=== PATIENT | male | born 1955 | race Caucasian/White ===

== ENCOUNTER 2022-08-15 11:49 | Inpatient (IN) | payer MEDICARE, OTHER ==
[~2022-08-15] VITALS: Ht 175.3 cm; Wt 53.0 kg
[2022-08-15] MEDS ORDERED: CLONIDINE HCL0.3 MG PO (13:10)
[2022-08-15] MEDS ORDERED: TRAZODONE HCL100 MG PO (13:11)
[2022-08-15] MEDS ORDERED: VITAMIN C1000 MG PO (13:12)
[2022-08-15] MEDS ORDERED: ALBUTEROL2.5 MG/3 M INH (13:13)
[2022-08-15] MEDS ORDERED: LOVENOX40 MG/0.4 SUB-Q (13:14)
[2022-08-15] MEDS ORDERED: IPRAT-ALBUT 0.5-3 ML INH (13:15)
[2022-08-15] MEDS ORDERED: MELATONIN3 MG PO (13:16)
[2022-08-15] MEDS ORDERED: LOPERAMIDE2 M1 PO (13:16)
[2022-08-15] MEDS ORDERED: NICOTINE LOZENGE2 M2 BUCCAL (13:17)
[2022-08-15] MEDS ORDERED: ONDANSETRON ODT8 MG PO (13:18)
[2022-08-15] MEDS ORDERED: OXYCODONE HCL5 MG PO ×2 (13:18→13:19)
[2022-08-15] MEDS ORDERED: SEROQUEL25 MG PO (13:20)
[2022-08-15] MEDS ORDERED: GAS RELIEF80 MG PO (13:21)
[2022-08-15 17:47] VITALS: BP 97/68
[2022-08-15 21:12] VITALS: BP 102/51
[2022-08-16 02:00] VITALS: BP 100/56
[2022-08-16 06:30] VITALS: BP 121/55
[2022-08-16 09:54] VITALS: BP 128/59
[2022-08-16 17:21] VITALS: BP 123/48
[2022-08-16 19:51] VITALS: BP 131/54
--- NOTE | 2022-08-17 04:12 | OR ---
[facility] [address] [place], [place] [address] Signed DATE OF OPERATION: 08/16/2022 SURGEON: Mandi Patel MD PREOPERATIVE DIAGNOSIS: Multiple medical problems and blood per ileostomy. POSTOPERATIVE DIAGNOSIS: Periampullary bleeding, active and persistent. PROCEDURES: 1. Esophagogastroduodenoscopy. 2. Control of hemorrhage in periampullary area with minimal direct cautery, application of hemoclip and Cook hemostatics spray. ANESTHESIA: Intravenous sedation, propofol infusion, Bryan Gamez, MEDIA PRODUCTION SUPPORT MANAGER. INDICATION: A 67-year-old man is in the hospital upon admission by Dr. Pelaez, having multiple medical problems, including an ileostomy related to right colectomy performed elsewhere. He was admitted with blood per ostomy from [facility] care facility locally. He has been fluid resuscitated and is now to undergo upper endoscopy to better characterize the problem. He has been identified as having a duodenal ulcer in recent times and in the distant past as well. He has had no hematemesis. He does not currently have blood per the ileostomy. He understands, as does his the risk of bleeding, infection, perforation, and other unforeseen complications attendant to upper endoscopy with attempt at control of bleeding as necessary. Understanding this, he wished to proceed. FINDINGS: The esophagus and stomach have no blood in them. The duodenum certainly did have some fresh blood and bleeding. Close inspection showed what ultimately appeared to be the ampulla with a focal area of bleeding. Careful inspection did not confirm the bleeding to have been from the biliary tree, but rather adjacent to the ampulla proper. Excision of the ampulla by cautery would be contraindicated without consideration for stenting of the duct and on that basis, spot weld technique with electrocautery to the bleeding site as well as an application of a hemoclip near it, but not over it as well as application of Cook hemospray was undertaken in hopes of controlling the persistent, though not vigorous bleeding. Electronically Signed By: MANDI PATEL MD 08/17/22 0412 PATIENT NAME: Miguel ESCOBEDO OPERATIVE REPORT DATE OF : 51 REPORT #: [id number] PHYSICIAN: MANDI PATEL MD PCP: OTHER PCP REPORT IS CONFIDENTIAL AND NOT TO BE RELEASED WITHOUT AUTHORIZATION [facility] [address] [place], [place] [address] Signed DESCRIPTION OF PROCEDURE: The patient was brought to the endoscopy suite and placed in lateral decubitus position, and given topical lidocaine hypopharyngeal anesthesia. A bite block was placed. An Olympus video upper endoscope was passed in the hypopharynx and into the esophagus without problem. The esophagus was normal. Stomach was intubated, which was normal as well. Passage of the scope through the pylorus showed some fresh blood immediately. The scope was passed beyond this to the 3rd portion of the duodenum, which was entirely normal. Photographs were taken. The scope was then withdrawn and a small nodular area with persistent oozing of blood was noted. At 1st, this looked to be like a duodenal polyp, but given its location and with careful affirmation, it was clear that this mass represents the ampulla, as the ampulla proper was not otherwise visualized. There was persistent oozing from this area of fresh blood. Careful inspection did not show it to be from a luminal source, specifically not bleeding from the common bile duct (hemobilia), but rather an area of inflammation on the ampulla in the inferior aspect. One might be tempted to perform snare polypectomy of the ampulla in hopes of controlling the bleeding, that could likely result in ampullary stenosis and other significant issues and other methods of control were deemed advisable. Without access to a side-viewing J scope, a snare polypectomy device was passed and with a minimal amount of wire extruding from the device spot welding of the inferior aspect of the ampulla undertaken. This did afford some control to the bleeding, but not complete control. Irrigation and careful inspection again showed bleeding. Fluid distinct and on the surface of the ampulla in the inferior aspect a bit. With various manipulations, the area behind it could be identified more fully. Hemoclip was applied to this area with some benefit. Although hemostasis was improved, it was not complete and on that basis Cook hemospray was carefully applied to the area, which did appear to allow for hemostatic control. The scope was then manipulated, allowed for irrigation, showing no other source of bleeding. The scope was carefully withdrawn and removed and the patient taken to the recovery room in good condition. CONCLUDING DIAGNOSIS: Periampullary bleeding, controlled. PLAN: PPI use and Carafate slurry will be essential to healing of this area. We will monitor closely that there is no after affect, specifically no pancreatitis or other untoward sequela. Mandi Patel MD Electronically Signed By: MANDI PATEL MD 08/17/22 0412 PATIENT NAME: GREGGMiguel Piña OPERATIVE REPORT DATE OF : 51 REPORT #: [id number] PHYSICIAN: MANDI PATEL MD PCP: OTHER PCP REPORT IS CONFIDENTIAL AND NOT TO BE RELEASED WITHOUT AUTHORIZATION [facility] [address] [place], [place] [address] Signed /[facility] /[id number] cc: Dr. Phan Pelaez Copies: ~ Electronically Signed By: MANDI PATEL MD 08/17/22 0412 PATIENT NAME: Miguel ESCOBEDO OPERATIVE REPORT DATE OF : 51 REPORT #: [id number] PHYSICIAN: MANDI PATEL MD PCP: OTHER PCP REPORT IS CONFIDENTIAL AND NOT TO BE RELEASED WITHOUT AUTHORIZATION
--- NOTE | 2022-08-17 04:12 | CONS ---
[facility] [address] [place], [place] [address] Signed DATE OF CONSULTATION: PROBLEM: Melena via ileostomy. HISTORY OF PRESENT ILLNESS: This 67-year-old white man had recent longstanding hospitalization extending from about July 09 to August 11 and presents to the emergency room with melena from his ileostomy. He had some abdominal pain in the lower abdomen as well. His complicated issue was that of initially appendicitis in [place], [place], treated with laparoscopy, conversion to open appendectomy. Subsequent complications prompted transfer to [facility] where he ultimately had a right colectomy with end ileostomy. He was from [place], [place], but sent to [facility] on August 11, 2022 (today is August 15). He was noted to have melena within the ileostomy appliance and on that basis was taken by ambulance to [facility] where he was evaluated. The patient has had no hematemesis or blood per rectum. He has underlying problems of hypertension, COPD, cardiomyopathy, sleep apnea, anxiety and depression. He does have a cardiac pacemaker in place and currently an ileostomy. ALLERGIES: He has allergies to nonsteroidal medication and contrast iodine. HOME MEDICATIONS: Included clonidine, trazodone, vitamin C, albuterol, Lovenox subcutaneously, DuoNeb, loperamide, melatonin, nicotine, buccal lozenge, oxycodone, Seroquel, and simethicone. The patient describes a distant history of duodenal ulcer. I was initially under the understanding that he had a recent duodenal ulcer, but this apparently is not true and was from long ago he says. SOCIAL HISTORY: The patient is accompanied by his two sisters. He lives in [place]. One sister lives in [place] and the other in the [facility]. The patient is not . REVIEW OF SYSTEMS: He denies any shortness of breath or chest pain. He feels generally weak. He has no dysphagia. He has had no hematemesis, only apparent melena per ileostomy site. PHYSICAL EXAMINATION: GENERAL: Gaunt and cachectic white man who looks with advanced illness. He is said to Electronically Signed By: MANDI PATEL MD 08/17/22 0412 PATIENT NAME: Miguel ESCOBEDO Wang CONSULTATION DATE OF : 51 REPORT #: [id number] PHYSICIAN: MANDI PATEL MD PCP: OTHER PCP REPORT IS CONFIDENTIAL AND NOT TO BE RELEASED WITHOUT AUTHORIZATION [facility] [address] [place], [place] [address] Signed have lost an additional 20 pounds in the past month and notably was quite thin before that. VITAL SIGNS: Show a temperature of 97.3, a pulse of 70, blood pressure 97/68. NECK: Trachea is easily identified and normal without sign of cervical adenopathy. He has an obvious left pectoral pacemaker in place. He has a body fat over his chest wall. HEART: Regular at this time. CHEST: Clear. ABDOMEN: Sunken and thin. His xiphoid is easily identified. Abdominal palpation reveals no evidence of ascites or tenderness and no mass. EXTREMITIES: Show no clubbing, cyanosis, or edema. ASSESSMENT: The patient has had significant complications related initially to appendicitis and now has an end ileostomy that has shown blood in it. He is known to have history of duodenal ulcer in the past, though unclear when he last had upper endoscopy to him and to his sisters. If he has indeed undergone right colectomy with end ileostomy, we can at least be confident that his bleeding is an upper source. On that basis, I would recommend upper endoscopy to be performed tomorrow to better characterize the problem that assess for recurrent peptic disease. The risk of bleeding, infection, perforation, need for other indicated procedure were reviewed in detail. He understands and wished to proceed. MD NANI Palmer/[facility] /[id number] cc: MD Dr. Mandi VALLES Copies: ~ Electronically Signed By: MANDI PATEL MD 08/17/22 0412 PATIENT NAME: Miguel ESCOBEDO CONSULTATION DATE OF : 51 REPORT #: [id number] PHYSICIAN: MANDI PATEL MD PCP: OTHER PCP REPORT IS CONFIDENTIAL AND NOT TO BE RELEASED WITHOUT AUTHORIZATION
[2022-08-17 05:19] VITALS: BP 115/54
[2022-08-17 09:23] VITALS: BP 128/59
[2022-08-17 14:15] VITALS: BP 126/48
[2022-08-17 17:52] VITALS: BP 114/46
[2022-08-17 20:17] VITALS: BP 115/51
[2022-08-18 05:24] VITALS: BP 119/57
[2022-08-18 09:18] VITALS: BP 112/54
[2022-08-18 14:01] VITALS: BP 120/46
[2022-08-18 17:32] VITALS: BP 107/53
[2022-08-18 20:16] VITALS: BP 112/57
[2022-08-19] VITALS (8 sets, daily range): BP systolic 127–144; BP diastolic 48–859
[2022-08-19] MEDS ORDERED: OXYCODONE HCL5 MG PO (16:31)
[2022-08-19] MEDS ORDERED: SUCRALFATE1 GM PO (16:32)
[2022-08-19] MEDS ORDERED: TRAZODONE HCL100 MG PO (16:32)
[2022-08-19] MEDS ORDERED: PANTOPRAZOLE SO40 MG PO (16:32)
[2022-08-20 01:34] VITALS: BP 138/57
[2022-08-20 05:24] VITALS: BP 106/76
[2022-08-20 09:29] VITALS: BP 122/43
[2022-08-20 13:26] VITALS: BP 128/43
--- NOTE | 2022-08-20 19:01 | OR ---
[facility] [address] [place], [place] [address] Signed DATE OF OPERATION: 08/19/2022 SURGEON: Mandi Patel MD PREOPERATIVE DIAGNOSES: Questionable persistent recurrent melena in ileostomy bag. POSTOPERATIVE DIAGNOSIS: No evidence of upper gastrointestinal bleeding. PROCEDURE: Esophagogastroduodenoscopy. ANESTHESIA: Intravenous sedation, propofol infusion, Bryan Gamez CRNA INDICATIONS: This 67-year-old white man was admitted with melena through an ostomy site. He has a complex past history previously enumerated in previous upper endoscopy report from two days ago. He appeared on previous endoscopy to have bleeding at the site of the ampulla, thought related to it, but not from it particularly. He had no further bleeding after interventions were undertaken including minimal amount of cautery, hemostatic agent and a small clip. He is noted to have dark ileostomy effluent though not elyssa blood by any means and his hematocrit has drifted requiring another unit of blood transfusion. I have recommended repeat upper endoscopy to see if there is blood associated with ampullary drainage; if this is the case, he may be suffering the rare but well known problem of (bleeding from the pancreatic duct) for which advanced endoscopic treatment would be required. He understands the risk of bleeding, infection, and perforation related to upper endoscopy and wished to proceed. FINDINGS: There was no sign of active bleeding in the esophagus, stomach, or duodenum. The area of previous intervention had a bit of scar tissue. The ampullary appearance was completely gone at this point. It is unclear the significance of that. The true ampulla was not particularly identified it is admitted, but again no blood fresh or otherwise was noted. DESCRIPTION OF PROCEDURE: The patient was brought to the endoscopy suite and placed in the lateral decubitus Electronically Signed By: MANDI PATEL MD 08/20/22 1901 PATIENT NAME: Miguel ESCOBEDO OPERATIVE REPORT DATE OF : 51 REPORT #: [id number] PHYSICIAN: MANDI PATEL MD PCP: OTHER PCP REPORT IS CONFIDENTIAL AND NOT TO BE RELEASED WITHOUT AUTHORIZATION [facility] [address] [place], [place] [address] Signed position, given topical lidocaine hypopharyngeal anesthesia. Intravenous sedation was induced with propofol infusional technique with full cardiopulmonary monitoring. A bite block was placed. An Olympus video upper endoscope was passed in the hypopharynx. Careful inspection of the vallecula and surrounding hypopharyngeal area did show some small blood vessels, but no actual varices. Scope was advanced to the esophagus, throughout its length it was normal. Scope was passed to the stomach, which was insufflated with air. Rugal folds were normal. There was no blood or clot, fresh or old blood. There was mild inflammation the peripyloric area. The scope was passed into the duodenum. The bulbar portion was normal and examination of 2nd and 3rd portion showed no sign of blood or clot. Withdrawal of scope showed in the 2nd portion areas of scarring from previous intervention. The bulb was findings suggestive of ampulla was no longer present, only a bit of scar. There was no sign of fresh blood, stigmata of bleeding, or other issue. The scope then was carefully withdrawn and remaining evaluation was normal. The patient was taken to the recovery room in good condition. CONCLUDING DIAGNOSIS: No evidence of active bleeding. No sign of ampullary bleeding or even clear finding of the ampulla itself. MD NANI Palmer/[facility] /[id number] cc: Naren Garibay MD Copies: NAREN GARIBAY MD ~ Electronically Signed By: MANDI PATEL MD 08/20/22 1901 PATIENT NAME: Miguel ESCOBEDO OPERATIVE REPORT DATE OF : 51 REPORT #: [id number] PHYSICIAN: MANDI PATEL MD PCP: OTHER PCP REPORT IS CONFIDENTIAL AND NOT TO BE RELEASED WITHOUT AUTHORIZATION
== END 2022-08-20 14:40 | DRG 378 ==
LOC: ED 11:49 → MS 11:50
PROVIDERS: Surgery; ADMIT Family Medicine; ATTEND Internal Medicine
PROC: 0W3P8ZZ Control Bleeding in Gastrointestinal Tract, Via Natural or Artificial Opening Endoscopic (ICD-10-PCS; 2022-08-16)
PROC: 0T9B70Z Drainage of Bladder with Drainage Device, Via Natural or Artificial Opening (ICD-10-PCS; 2022-08-16)
PROC: 30233N1 Transfusion of Nonautologous Red Blood Cells into Peripheral Vein, Percutaneous Approach (ICD-10-PCS; principal; 2022-08-16 15:30)
PROC: 0DJ08ZZ Inspection of Upper Intestinal Tract, Via Natural or Artificial Opening Endoscopic (ICD-10-PCS; 2022-08-19)
DX: K92.2 Gastrointestinal hemorrhage, unspecified (principal); D62 Acute posthemorrhagic anemia; E87.1 Hypo-osmolality and hyponatremia; N17.9 Acute kidney failure, unspecified; N39.0 Urinary tract infection, site not specified; I10 Essential (primary) hypertension; J44.9 Chronic obstructive pulmonary disease, unspecified; G47.30 Sleep apnea, unspecified; K21.9 Gastro-esophageal reflux disease without esophagitis; E83.42 Hypomagnesemia; B96.5 Pseudomonas (aeruginosa) (mallei) (pseudomallei) as the cause of diseases classified elsewhere; F10.90 Alcohol use, unspecified, uncomplicated; E87.6 Hypokalemia; F41.9 Anxiety disorder, unspecified; F32.A Depression, unspecified; F17.210 Nicotine dependence, cigarettes, uncomplicated; Z88.6 Allergy status to analgesic agent; Z91.041 Radiographic dye allergy status; Z79.891 Long term (current) use of opiate analgesic; Z90.49 Acquired absence of other specified parts of digestive tract; Z93.2 Ileostomy status; Z95.0 Presence of cardiac pacemaker; Z79.899 Other long term (current) drug therapy
CPT/HCPCS: 00731; 36415; 36430; 51702; 71045; 80053; 81001; 82150; 83735; 84100; 85025; 85610; 85730; 86850; 86900; 86901; 86922; 87077; 87088; 87186; 94640; 94760; 96374; 96375; 96376; 97162; 97166; 97530; 99285-25; A9270; C9113; G0378; J0696; J1610; J2405; J2704; J3475; J3480; J3490; J7030; J7060; J7121; J7512; P9016

== ENCOUNTER 2022-09-11 17:12 | Inpatient (IN) | payer MEDICARE, OTHER ==
[~2022-09-11] VITALS: Ht 175.3 cm; Wt 43.5 kg
--- OUTSIDE RECORDS SUMMARY | ~2022-09-11 | XMS | Continuity of Care Document ---
Demographics + + + | Address | [address] | | | [place] [address] | + + + | Preferred Language | Unknown | + + + | Marital Status | | + + + | Baptism Affiliation | Unknown | + + + | Race | White | + + + | Ethnic Group | Not or | + + + Author + + + | Author | [facility] | + + + | Organization | [facility] | + + + | Address | [address] | | | [place] [address] | + + + | Phone | | + + + Care Team Providers + + + + | Care Wood Miller Name | Role | Phone | + + + + Unavailable | Unavailable | + + + + Unavailable | Unavailable | + + + + Unavailable | Unavailable | + + + + Allergies and Intolerances + + + + + | date | description | facility | type | + + + + + | (no date) | Celecoxib | [facility] (unknown[facility] | | + + + + + | (no date) | Celecoxib | [facility] | (unknown) | | | | [facility] | | + + + + + | (no date) | CONTRAST IODINE | [facility] | (unknown) | + + + + + | (no date) | NSAIDS | [facility] | (unknown) | | | (Non-Steroidal | | | | | Anti-Inflamma | | | + + + + + | (no date) | celecoxib | [facility] | (unknown) | + + + + + | (no date) | Celecoxib | [facility] | (unknown) | | | | Hospital | | + + + + + Encounters No information. Functional Status No information. Immunizations No information. Medications + + + + | date | description | facility | + + + + | 2022-08-19 00:00 | OXYCODONE HCL | [facility] | + + + + | 2022-08-20 00:00 | OXYCODONE HCL | [facility] | + + + + | 2022-08-20 00:00 | IPRATROPIUM/ALBUTEROL | [facility] | | | SULFATE | | + + + + | 2022-08-20 00:00 | QUETIAPINE FUMARATE | [facility] | + + + + | 2022-08-20 00:00 | ASCORBIC ACID | [facility] | + + + + | 2022-08-20 00:00 | MELATONIN | [facility] | + + + + | 2022-08-20 00:00 | ONDANSETRON | [facility] | + + + + | 2022-08-19 00:00 | PANTOPRAZOLE SODIUM | [facility] | + + + + | 2022-08-20 00:00 | SIMETHICONE | [facility] | + + + + | 2022-08-19 00:00 | SUCRALFATE | [facility] | + + + + | 2022-08-20 00:00 | Nicotine Polacrilex | [facility] | + + + + | 2022-08-20 00:00 | ALBUTEROL SULFATE | [facility] | + + + + | 2022-08-20 00:00 | Enoxaparin Sodium | [facility] | + + + + | 2022-08-19 00:00 | TRAZODONE HCL | [facility] | + + + + | 2022-08-20 00:00 | TRAZODONE HCL | [facility] | + + + + | 2022-08-20 00:00 | CLONIDINE HCL | [facility] | + + + + | 2022-08-20 00:00 | LOPERAMIDE HCL | [facility] | + + + + Problems + + + + | date | description | facility | + + + + | 2022-08-15 00:00 | Gastrointestinal | [facility] | | | hemorrhage | | + + + + | 2022-08-17 19:18 | PSEUDOMONAS (MALLEI) | [facility] | | | CAUSING DISEASES [facility] | | | | E[facility]WH | | + + + + | 2022-08-17 19:18 | Acute posthemorrhagic | [facility] | | | anemia | | + + + + | 2022-08-17 19:18 | HYPOMAGNESEMIA | [facility] | + + + + | 2022-08-17 19:18 | HYPO-OSMOLALITY AND | [facility] | | | HYPONATREMIA | | + + + + | 2022-08-17 19:18 | HYPOKALEMIA | [facility] | + + + + | 2022-08-17 19:18 | ALCOHOL USE, UNSPECIFIED, | [facility] | | | UNCOMPLICATED | | + + + + | 2022-08-17 19:18 | NICOTINE DEPENDENCE, | [facility] | | | CIGARETTES, UNCOMPLICATED | | + + + + | 2022-08-17 19:18 | DEPRESSION, UNSPECIFIED | [facility] | + + + + | 2022-08-17 19:18 | ANXIETY DISORDER, | [facility] | | | UNSPECIFIED | | + + + + | 2022-08-17 19:18 | SLEEP APNEA, UNSPECIFIED | [facility] | + + + + | 2022-08-17 19:18 | Essential (primary) | [facility] | | | hypertension | | + + + + | 2022-08-17 19:18 | CHRONIC OBSTRUCTIVE | [facility] | | | PULMONARY DISEASE, | | | | UNSPECIFIED | | + + + + | 2022-08-17 19:18 | GASTRO-ESOPHAGEAL REFLUX | [facility] | | | DISEASE WITHOUT ESOPHAGIT | | + + + + | 2022-08-17 19:18 | GASTROINTESTINAL | [facility] | | | HEMORRHAGE, UNSPECIFIED | | + + + + | 2022-08-17 19:18 | ACUTE KIDNEY FAILURE, | [facility] | | | UNSPECIFIED | | + + + + | 2022-08-17 19:18 | URINARY TRACT INFECTION, | [facility] | | | SITE NOT SPECIFIED | | + + + + | 2022-08-17 19:18 | LOWER ABDOMINAL PAIN, | [facility] | | | UNSPECIFIED | | + + + + | 2022-08-17 19:18 | DENTIST (CURRENT) USE OF | [facility] | | | OPIATE ANALGESIC | | + + + + | 2022-08-17 19:18 | OTHER MCC (CURRENT) | [facility] | | | DRUG THERAPY | | + + + + | 2022-08-17 19:18 | ALLERGY STATUS TO | [facility] | | | ANALGESIC AGENT STATUS | | + + + + | 2022-08-17 19:18 | ACQUIRED ABSENCE OF OTHER | [facility] | | | SPECIFIED PARTS OF DIGES | | + + + + | 2022-08-17 19:18 | RADIOGRAPHIC DYE ALLERGY | [facility] | | | STATUS | | + + + + | 2022-08-17 19:18 | ILEOSTOMY STATUS | [facility] | + + + + | 2022-08-17 19:18 | PRESENCE OF CARDIAC | [facility] | | | PACEMAKER | | + + + + Procedures + + + + | date | description | facility | + + + + | 2022-08-16 00:00 | Esophagogastroduodenoscopy | [facility] | | | (EGD) with closed biopsy | | + + + + | 2022-08-19 00:00 | Esophagogastroduodenoscopy | [facility] | | | (EGD) with closed biopsy | | + + + + | 2022-08-16 00:00 | Esophagogastroduodenoscopy | [facility] | | | (EGD) with closed biopsy | | + + + + | 2022-08-19 00:00 | Esophagogastroduodenoscopy | [facility] | | | (EGD) with closed biopsy | | + + + + Results/Labs +--------+--------+ + +---------+--------+ + | test | date | author | facility | value | unit | | | | | | | | | interpreta | | | | | | | | tion | +--------+--------+ + +---------+--------+ + + + | Result panel 1 | + + + + + + +---------+ + + | (unknown) | (no date) | (unknown) | [facility] | [facility]units | (unknown) | | [facility] | [facility] | | | | + + + + +---------+ + + + + | Result panel 2 | + + + + + + +---------+ + + | (unknown) | (no date) | (unknown) | [facility] (no | (units | (unknown) | | | [facility] | value) | unknown) | | [facility] | | | | + + + + +---------+ + + + + | Result panel 3 | + + + + + + +---------+ + + | (unknown) | (no date) | (unknown) | [facility] (no | (units | (unknown) | | | | [facility] | value) | unknown) | | | | [facility] | | | | + + + + +---------+ + + + + | Result panel 4 | + + + + + + +---------+ + + | (unknown) | (no date) | (unknown) | [facility] (no | (units | (unknown) | | | | [facility] | value) | unknown) | | [facility] | | | | + + + + +---------+ + + + + | Result panel 5 | + + + + + + +---------+ + + | (unknown) | (no date) | (unknown) | [facility] (no | (units | (unknown) | | | | [facility] | value) | unknown) | | [facility] | | | | + + + + +---------+ + + + + | Result panel 6 | + + + + + + +---------+ + + | (unknown) | (no date) | (unknown) | [facility] (no | (units | (unknown) | | | | [facility] | value) | unknown) | | | | [facility] | | | | + + + + +---------+ + + + + | Result panel 7 | + + + + + + +---------+ + + | (unknown) | (no date) | (unknown) | [facility] (no | (units | (unknown) | | | | [facility] | value) | unknown) | | | | [facility] | | | | + + + + +---------+ + + + + | Result panel 8 | + + + + + + +---------+ + + | (unknown) | (no date) | (unknown) | [facility] (no | (units | (unknown) | | | | [facility] | value) | unknown) | | | | [facility] | | | | + + + + +---------+ + + + + | Result panel 9 | + + + + + + +---------+ + + | (unknown) | (no date) | (unknown) | [facility] (no | (units | (unknown) | | | | [facility] | value) | unknown) | | | | [facility] | | | | + + + + +---------+ + + + + | Result panel 10 | + + + + + + +---------+ + + | (unknown) | (no date) | (unknown) | [facility] (no | (units | (unknown) | | | | [facility] | value) | unknown) | | | [facility] | | | | + + + + +---------+ + + + + | Result panel 11 | + + + + + + +---------+ + + | (unknown) | (no date) | (unknown) | [facility] | (no | (units | (unknown) | | | | [facility] | value) | unknown) | | | [facility] | | | | + + + + +---------+ + + + + | Result panel 12 | + + + + + + +---------+ + + | (unknown) | (no date) | (unknown) | [facility] | (no | (units | (unknown) | | | | [facility] | value) | unknown) | | | [facility] | | | | + + + + +---------+ + + + + | Result panel 13 | + + + + + + +---------+ + + | (unknown) | (no date) | (unknown) | [facility] | (no | (units | (unknown) | | | | [facility] | value) | unknown) | | | [facility] | | | | + + + + +---------+ + + + + | Result panel 14 | + + + + + + +---------+ + + | (unknown) | (no date) | (unknown) | [facility] | (no | (units | (unknown) | | | | [facility] | value) | unknown) | | | | | [facility] | | | | + + + + +---------+ + + + + | Result panel 15 | + + + + + + +---------+ + + | (unknown) | (no date) | (unknown) | [facility] | (no | (units | (unknown) | | | | [facility] | value) | unknown) | | [facility] | | | | + + + + +---------+ + + + + | Result panel 16 | + + + + + + +---------+ + + | (unknown) | (no date) | (unknown) | [facility] | (no | (units | (unknown) | | | | [facility] | value) | unknown) | | [facility] | | | | + + + + +---------+ + + + + | Result panel 17 | + + + + + + +---------+ + + | (unknown) | (no date) | (unknown) | [facility] | (no | (units | (unknown) | | | | [facility] | value) | unknown) | | [facility] | | | | + + + + +---------+ + + + + | Result panel 18 | + + + + + + +---------+ + + | (unknown) | (no date) | (unknown) | [facility] | (no | (units | (unknown) | | | | [facility] | value) | unknown) | | | [facility] | | | | + + + + +---------+ + + + + | Result panel 19 | + + + + + + +---------+ + + | (unknown) | (no date) | (unknown) | [facility] (no | (units | (unknown) | | | | [facility] | value) | unknown) | | [facility] | | | | + + + + +---------+ + + + + | Result panel 20 | + + + + + + +---------+ + + | (unknown) | (no date) | (unknown) | [facility] (no | (units | (unknown) | | | | [facility] | value) | unknown) | | [facility] | | | | + + + + +---------+ + + + + | Result panel 21 | + + + + + + +---------+ + + | (unknown) | (no date) | (unknown) | [facility] (no | (units | (unknown) | | | | [facility] | value) | unknown) | | [facility] | | | | + + + + +---------+ + + + + | Result panel 22 | + + + + + + +---------+ + + | (unknown) | (no date) | (unknown) | [facility] | (no | (units | (unknown) | | | | [facility] | value) | unknown) | [facility] | | | | + + + + +---------+ + + + + | Result panel 23 | + + + + + + +---------+ + + | (unknown) | (no date) | (unknown) | [facility] | (no | (units | (unknown) | | | | [facility] | value) | unknown) | | | [facility] | | | | + + + + +---------+ + + + + | Result panel 24 | + + + + + + +---------+ + + | (unknown) | (no date) | (unknown) | [facility] | (no | (units | (unknown) | | | | [facility] | value) | unknown) | | [facility] | | | | + + + + +---------+ + + + + | Result panel 25 | + + + + + + +---------+ + + | (unknown) | (no date) | (unknown) | [facility] | (no | (units | (unknown) | | | | [facility] | value) | unknown) | | | [facility] | | | | + + + + +---------+ + + + + | Result panel 26 | + + + + + + +---------+ + + | (unknown) | (no date) | (unknown) | [facility] | (no | (units | (unknown) | | | | [facility] | value) | unknown) | [facility] | | | | + + + + +---------+ + + + + | Result panel 27 | + + + + + + +---------+ + + | (unknown) | (no date) | (unknown) | [facility] | (no | (units | (unknown) | | | | [facility] | value) | unknown) | | | | | [facility] | | | | + + + + +---------+ + + + + | Result panel 28 | + + + + + + +---------+ + + | (unknown) | (no date) | (unknown) | [facility] | (no | (units | (unknown) | | | | [facility] | value) | unknown) | | | | | [facility] | | | | + + + + +---------+ + + + + | Result panel 29 | + + + + + + +---------+ + + | (unknown) | (no date) | (unknown) | [facility] | (no | (units | (unknown) | | | | [facility] | value) | unknown) | | | | | [facility] | | | | + + + + +---------+ + + + + | Result panel 30 | + + + + + + +---------+ + + | (unknown) | (no date) | (unknown) | [facility] | (no | (units | (unknown) | | | | [facility] | value) | unknown) | | | | | [facility] | | | | + + + + +---------+ + + + + | Result panel 31 | + + + + + + +---------+ + + | (unknown) | (no date) | (unknown) | [facility] | (no | (units | (unknown) | | | | [facility] | value) | unknown) | | | | | [facility] | | | | + + + + +---------+ + + + + | Result panel 32 | + + + + + + +---------+ + + | (unknown) | (no date) | (unknown) | [facility] | (no | (units | (unknown) | | | | [facility] | value) | unknown) | | [facility] | | | | + + + + +---------+ + + + + | Result panel 33 | + + + + + + +---------+ + + | (unknown) | (no date) | (unknown) | [facility] | (no | (units | (unknown) | | | | [facility] | value) | unknown) | | | [facility] | | | | + + + + +---------+ + + + + | Result panel 34 | + + + + + + +---------+ + + | (unknown) | (no date) | (unknown) | [facility] | (no | (units | (unknown) | | | | [facility] | value) | unknown) | [facility] | [facility] | | | | + + + + +---------+ + + + + | Result panel 35 | + + + + + + +---------+ + + | (unknown) | (no date) | (unknown) | [facility] | (no | (units | (unknown) | | | | [facility] | value) | unknown) | | | [facility] | | | | + + + + +---------+ + + + + | Result panel 36 | + + + + + + +---------+ + + | (unknown) | (no date) | (unknown) | [facility] | (no | (units | (unknown) | | | | [facility] | value) | unknown) | | | [facility] | | | | + + + + +---------+ + + + + | Result panel 37 | + + + + + + +---------+ + + | (unknown) | (no date) | (unknown) | [facility] | (no | (units | (unknown) | | | | [facility] | value) | unknown) | | | | [facility] | | | | + + + + +---------+ + + + + | Result panel 38 | + + + + + + +---------+ + + | (unknown) | (no date) | (unknown) | [facility] | (no | (units | (unknown) | | | | [facility] | value) | unknown) | | [facility] | | | | + + + + +---------+ + + + + | Result panel 39 | + + + + + + +---------+ + + | (unknown) | (no date) | (unknown) | [facility] (no | (units | (unknown) | | | | [facility] | value) | unknown) | | | [facility] | | | | + + + + +---------+ + + + + | Result panel 40 | + + + + + + +---------+ + + | (unknown) | (no date) | (unknown) | [facility] (no | (units | (unknown) | | | | [facility] | value) | unknown) | | [facility] | | | | + + + + +---------+ + + + + | Result panel 41 | + + + + + + +---------+ + + | (unknown) | (no date) | (unknown) | [facility] (no | (units | (unknown) | | | | [facility] | value) | unknown) | | | | [facility] | | | | + + + + +---------+ + + + + | Result panel 42 | + + + + + + +---------+ + + | (unknown) | (no date) | (unknown) | [facility] | (no | (units | (unknown) | | | | [facility] | value) | unknown) | | | [facility] | | | | + + + + +---------+ + + + + | Result panel 43 | + + + + + + +---------+ + + | (unknown) | (no date) | (unknown) | [facility] | (no | (units | (unknown) | | | | [facility] | value) | unknown) | | | [facility] | | | | + + + + +---------+ + + + + | Result panel 44 | + + + + + + +---------+ + + | (unknown) | (no date) | (unknown) | [facility] | (no | (units | (unknown) | | | | [facility] | value) | unknown) | | | | [facility] | | | | + + + + +---------+ + + + + | Result panel 45 | + + + + + + +---------+ + + | (unknown) | (no date) | (unknown) | [facility] | (no | (units | (unknown) | | | | [facility] | value) | unknown) | | [facility] | [facility] | | | | + + + + +---------+ + + + + | Result panel 46 | + + + + + + +---------+ + + | (unknown) | (no date) | (unknown) | [facility] | (no | (units | (unknown) | | | | [facility] | value) | unknown) | | | [facility] | | | | + + + + +---------+ + + + + | Result panel 47 | + + + + + + +---------+ + + | (unknown) | (no date) | (unknown) | [facility] | (no | (units | (unknown) | | | | [facility] | value) | unknown) | | | | [facility] | | | | + + + + +---------+ + + + + | Result panel 48 | + + + + + + +---------+ + + | (unknown) | (no date) | (unknown) | [facility] | (no | (units | (unknown) | | | | [facility] | value) | unknown) | | | [facility] | | | | + + + + +---------+ + + + + | Result panel 49 | + + + + + + +---------+ + + | (unknown) | (no date) | (unknown) | [facility] | (no | (units | (unknown) | | | | [facility] | value) | unknown) | | | [facility] | | | | + + + + +---------+ + + + + | Result panel 50 | + + + + + + +---------+ + + | (unknown) | (no date) | (unknown) | [facility] | (no | (units | (unknown) | | | | [facility] | value) | unknown) | | | [facility] | | | | + + + + +---------+ + + + + | Result panel 51 | + + + + + + +---------+ + + | (unknown) | (no date) | (unknown) | [facility] | (no | (units | (unknown) | | | | [facility] | value) | unknown) | | | [facility] | | | | + + + + +---------+ + + + + | Result panel 52 | + + + + + + +---------+ + + | (unknown) | (no date) | (unknown) | [facility] (no | (units | (unknown) | | | [facility] | value) | unknown) | | | | [facility] | | | | + + + + +---------+ + + + + | Result panel 53 | + + + + + + +---------+ + + | (unknown) | (no date) | (unknown) | [facility] | (no | (units | (unknown) | | | | [facility] | value) | unknown) | | | | [facility] | | | | + + + + +---------+ + + + + | Result panel 54 | + + + + + + +---------+ + + | (unknown) | (no date) | (unknown) | [facility] | (no | (units | (unknown) | | | | [facility] | value) | unknown) | | | | [facility] | | | | + + + + +---------+ + + + + | Result panel 55 | + + + + + + +---------+ + + | (unknown) | (no date) | (unknown) | [facility] | (no | (units | (unknown) | | | | [facility] | value) | unknown) | | | [facility] | | | | + + + + +---------+ + + + + | Result panel 56 | + + + + + + +---------+ + + | (unknown) | (no date) | (unknown) | [facility] | (no | (units | (unknown) | | | | [facility] | value) | unknown) | | | | | [facility] | | | | + + + + +---------+ + + + + | Result panel 57 | + + + + + + +---------+ + + | (unknown) | (no date) | (unknown) | [facility] | (no | (units | (unknown) | | | | | [facility] | value) | unknown) | | | | [facility] | | | | + + + + +---------+ + + + + | Result panel 58 | + + + + + + +---------+ + + | (unknown) | (no date) | (unknown) | [facility] | (no | (units | (unknown) | | | | | [facility] | value) | unknown) | | | | | [facility] | | | | + + + + +---------+ + + + + | Result panel 59 | + + + + + + +---------+ + + | (unknown) | (no date) | (unknown) | [facility] | (no | (units | (unknown) | | | | [facility] | value) | unknown) | | | | [facility] | | | | + + + + +---------+ + + + + | Result panel 60 | + + + + + + +---------+ + + | (unknown) | (no date) | (unknown) | [facility] | (no | (units | (unknown) | | | | [facility] | value) | unknown) | | | | [facility] | | | | + + + + +---------+ + + + + | Result panel 61 | + + + + + + +---------+ + + | (unknown) | (no date) | (unknown) | [facility] | (no | (units | (unknown) | | | | [facility] | value) | unknown) | | | [facility] | | | | + + + + +---------+ + + + + | Result panel 62 | + + + + + + +---------+ + + | (unknown) | (no date) | (unknown) | [facility] | (no | (units | (unknown) | | | | [facility] | value) | unknown) | | | [facility] | | | | + + + + +---------+ + + + + | Result panel 63 | + + + + + + +---------+ + + | (unknown) | (no date) | (unknown) | [facility] | (no | (units | (unknown) | | | | [facility] | value) | unknown) | | [facility] | | | | + + + + +---------+ + + + + | Result panel 64 | + + + + + + +---------+ + + | (unknown) | (no date) | (unknown) | [facility] | (no | (units | (unknown) | | | | [facility] | value) | unknown) | | | | [facility] | | | | + + + + +---------+ + + + + | Result panel 65 | + + + + + + +---------+ + + | (unknown) | (no date) | (unknown) | [facility] | (no | (units | (unknown) | | | | [facility] | value) | unknown) | | | [facility] | | | | + + + + +---------+ + + + + | Result panel 66 | + + + + + + +---------+ + + | (unknown) | (no date) | (unknown) | [facility] | (no | (units | (unknown) | | | | [facility] | value) | [facility]) | | [facility] | | | | + + + + +---------+ + + + + | Result panel 67 | + + + + + + +---------+ + + | (unknown) | (no date) | (unknown) | [facility] | (no | (units | (unknown) | | | | [facility] | value) | unknown) | | | [facility] | | | | + + + + +---------+ + + + + | Result panel 68 | + + + + + + +---------+ + + | (unknown) | (no date) | (unknown) | [facility] | (no | (units | (unknown) | | | | [facility] | value) | unknown) | | | [facility] | | | | + + + + +---------+ + + + + | Result panel 69 | + + + + + + +---------+ + + | (unknown) | (no date) | (unknown) | [facility] (no | (units | (unknown) | | | | [facility] | value) | unknown) | | [facility] | | | | + + + + +---------+ + + Social History + + + + | date | description | facility | + + + + | 2022-08-20 00:00 | Unknown if ever smoked | [facility] | + + + + Vital Signs + + + +---------+ | date | measurement | value | units | + + + +---------+ | 2022-08-15 00:00 | BMI | 17.3 | kg/m2 | + + + +---------+ | 2022-08-15 00:00 | height_metric | 175.26 | cm | + + + +---------+ | 2022-08-15 00:00 | height_standard | 69 | in | + + + +---------+ | 2022-08-15 00:00 | weight_metric | 53 | kg | + + + +---------+ | 2022-08-15 00:00 | weight_standard | 116.84 | lb | + + + +---------+ | 2022-08-15 00:00 | weight_standard | 116.85 | lb | + + + +---------+ | 2022-08-20 00:00 | BP_diastolic | 43 | mmHg | + + + +---------+ | 2022-08-20 00:00 | BP_systolic | 128 | mmHg | + + + +---------+ | 2022-08-20 00:00 | heart_rate | 81 | /min | + + + +---------+ | 2022-08-20 00:00 | o2_saturation | 96 | % | + + + +---------+ | 2022-08-20 00:00 | respiration_rate | 15 | /min | + + + +---------+ | 2022-08-20 00:00 | temperature_metric | 36.44 | C | | | | | | + + + +---------+ | 2022-08-20 00:00 | | 97.6 | F | | | temperature_standar | | | | | d | | | + + + +---------+"
--- OUTSIDE RECORDS SUMMARY | ~2022-09-11 | XMS | Continuity of Care Document ---
Demographics + + + | Address | [address] | | | [place] [address] | + + + | Preferred Language | Unknown | + + + | Marital Status | | + + + | Jewish Affiliation | Unknown | + + + | Race | White | + + + | Ethnic Group | Not or | + + + Author + + + | Author | [facility] | + + + | Organization | [facility] | + + + | Address | [address] | | | [place] [address] | + + + | Phone | | + + + Care Team Providers + + + + | Care Metallurgist Helper Name | Role | Phone | + + + + Unavailable | Unavailable | + + + + Unavailable | Unavailable | + + + + Unavailable | Unavailable | + + + + Allergies and Intolerances + + + + + | date | description | facility | type | + + + + + | (no date) | Celecoxib | [facility] (unknown[facility] | | + + + + + | (no date) | Celecoxib | [facility] | (unknown) | | | | [facility] | | + + + + + | (no date) | Celecoxib | [facility] | (unknown) | | | | Hospital | | + + + + + Encounters No information. Functional Status No information. Immunizations No information. Medications + + + + | date | description | facility | + + + + | 2022-08-19 00:00 | OXYCODONE HCL | [facility] | + + + + | 2022-08-20 00:00 | OXYCODONE HCL | [facility] | + + + + | 2022-08-20 00:00 | IPRATROPIUM/ALBUTEROL | [facility] | | | SULFATE | | + + + + | 2022-08-20 00:00 | QUETIAPINE FUMARATE | [facility] | + + + + | 2022-08-20 00:00 | ASCORBIC ACID | [facility] | + + + + | 2022-08-20 00:00 | MELATONIN | [facility] | + + + + | 2022-08-20 00:00 | ONDANSETRON | [facility] | + + + + | 2022-08-19 00:00 | PANTOPRAZOLE SODIUM | [facility] | + + + + | 2022-08-20 00:00 | SIMETHICONE | [facility] | + + + + | 2022-08-19 00:00 | SUCRALFATE | [facility] | + + + + | 2022-08-20 00:00 | Nicotine Polacrilex | [facility] | + + + + | 2022-08-20 00:00 | ALBUTEROL SULFATE | [facility] | + + + + | 2022-08-20 00:00 | Enoxaparin Sodium | [facility] | + + + + | 2022-08-19 00:00 | TRAZODONE HCL | [facility] | + + + + | 2022-08-20 00:00 | TRAZODONE HCL | [facility] | + + + + | 2022-08-20 00:00 | CLONIDINE HCL | [facility] | + + + + | 2022-08-20 00:00 | LOPERAMIDE HCL | [facility] | + + + + Problems + + + + | date | description | facility | + + + + | 2022-08-15 00:00 | Gastrointestinal | [facility] | | | hemorrhage | | + [...] + + + | 2022-08-17 19:18 | [facility] HOME (CURRENT) USE OF | [facility] | | | OPIATE ANALGESIC | | + + + + | 2022-08-17 19:18 | OTHER GROUP HOME (CURRENT) | [facility] | | | DRUG [...] + | 2022-08-16 00:00 | Esophagogastroduodenoscopy | [facility] | | | (EGD) with closed biopsy | | + + + + | 2022-08-19 00:00 | Esophagogastroduodenoscopy | [facility] | | | (EGD) with closed biopsy | | + + + + | 2022-08-16 00:00 | Esophagogastroduodenoscopy | [facility] | | | (EGD) with closed biopsy | | + + + + | 2022-08-19 00:00 | Esophagogastroduodenoscopy | [facility] | | | (EGD) with closed [...] 00:00 | Unknown if ever smoked | [facility] | + + + + Vital Signs [...]
--- OUTSIDE RECORDS SUMMARY | ~2022-09-11 | XMS | Continuity of Care Document ---
Demographics + + + | Address | [address] | | | [place] [address] | + + + | Preferred Language | Unknown | + + + | Marital Status | | + + + | Episcopalian Affiliation | Unknown | + + + | Race | White | + + + | Ethnic Group | Not or | + + + Author + + + | Author | [facility] | + + + | Organization | [facility] | + + + | Address | [address] | | | [place] [address] | + + + | Phone | | + + + Care Team Providers + + + + | Care Fast Food Manager Name | Role | Phone | + + + + Unavailable | Unavailable | + + + + Unavailable | Unavailable | + + + + Unavailable | Unavailable | + + + + Allergies and Intolerances + + + + + | date | description | facility | type | + + + + + | (no date) | Celecoxib | [facility] (unknown) | | [facility] | | + + + + + | (no date) | Celecoxib | [facility] | (unknown) | | | | [facility] | | + + + + + | (no date) | Celecoxib | [facility] | (unknown) | | | | [facility] | | + + + + + Encounters No information. Functional Status No information. Immunizations No information. Medications + + + + | date | description | facility | + + + + | 2022-08-19 00:00 | OXYCODONE HCL | [facility] | + + + + | 2022-08-20 00:00 | OXYCODONE HCL | [facility] | + + + + | 2022-08-20 00:00 | IPRATROPIUM/ALBUTEROL | [facility] | | | SULFATE | | + + + + | 2022-08-20 00:00 | QUETIAPINE FUMARATE | [facility] | + + + + | 2022-08-20 00:00 | ASCORBIC ACID | [facility] | + + + + | 2022-08-20 00:00 | MELATONIN | [facility] | + + + + | 2022-08-20 00:00 | ONDANSETRON | [facility] | + + + + | 2022-08-19 00:00 | PANTOPRAZOLE SODIUM | [facility] | + + + + | 2022-08-20 00:00 | SIMETHICONE | [facility] | + + + + | 2022-08-19 00:00 | SUCRALFATE | [facility] | + + + + | 2022-08-20 00:00 | Nicotine Polacrilex | [facility] | + + + + | 2022-08-20 00:00 | ALBUTEROL SULFATE | [facility] | + + + + | 2022-08-20 00:00 | Enoxaparin Sodium | [facility] | + + + + | 2022-08-19 00:00 | TRAZODONE HCL | [facility] | + + + + | 2022-08-20 00:00 | TRAZODONE HCL | [facility] | + + + + | 2022-08-20 00:00 | CLONIDINE HCL | [facility] | + + + + | 2022-08-20 00:00 | LOPERAMIDE HCL | [facility] | + + + + Problems + + + + | date | description | facility | + + + + | 2022-08-15 00:00 | Gastrointestinal | [facility] | | | hemorrhage | | + [...] + + + | 2022-08-17 19:18 | [facility] (CURRENT[facility] USE OF | [facility] | | | OPIATE ANALGESIC | | + + + + | 2022-08-17 19:18 | OTHER [facility] (CURRENT) | [facility] | | | DRUG [...] + | 2022-08-16 00:00 | Esophagogastroduodenoscopy | [facility] | | | (EGD) with closed biopsy | | + + + + | 2022-08-19 00:00 | Esophagogastroduodenoscopy | [facility] | | | (EGD) with closed biopsy | | + + + + | 2022-08-16 00:00 | Esophagogastroduodenoscopy | [facility] | | | (EGD) with closed biopsy | | + + + + | 2022-08-19 00:00 | Esophagogastroduodenoscopy | [facility] | | | [...] | Unknown if ever smoked | [facility] | + + + + Vital [...]
[~2022-09-11 17:12] MED LIST: ALBUTEROL2.5 MG/3 M INH; CLONIDINE HCL0.3 MG PO; GAS RELIEF80 MG PO; IPRAT-ALBUT 0.5-3 ML INH; LOPERAMIDE2 M1 PO; LOVENOX40 MG/0.4 SUB-Q; MELATONIN3 MG PO; NICOTINE LOZENGE2 M2 BUCCAL; ONDANSETRON ODT8 MG PO; OXYCODONE HCL5 MG PO; PANTOPRAZOLE SO40 MG PO; SEROQUEL25 MG PO; SUCRALFATE1 GM PO; TRAZODONE HCL100 MG PO; VITAMIN C1000 MG PO
--- NOTE | 2022-09-11 19:45 | NUR ---
PT ARRIVES TO FLOOR VIA STRETCHER. ADMISSION PROCESS COMPLETE. ATTENDS CHANGED AND PT REPOSITIONED. BARRIER CREAM APPLIED TO REDDENED AREA ON COCCYX. VS OBTAINED, WNL. PT ORIENTED TO ROOM AND CALL LIGHT USE. PT STATES UNDERSTANDING. DENIES FURTHER NEEDS AT THIS TIME. CALL LIGHT WITHIN PT REACH.
[2022-09-11 19:52] VITALS: BP 139/67
--- NOTE | 2022-09-11 19:58 | NUR ---
BEDSIDE REPORT RECEIVED FROM ED RN. PT TO FLOOR VIA STRETCHER. ALERT AND ORIENTED. ABLE TO TRANSFER SELF FROM STRETCHER TO BED. ORDERS RECEIVED. SKIN ASSESSMENT DONE WITH INSURANCE UNDERWRITER. COCCYX AREA RED. NON BLANCHABLE. BARRIER CREAM APPLIED. ASSISTED PT TO REPOSITION. WARM BLANKETS PROVIDED. INSURANCE UNDERWRITER IN ROOM FOR ADMISSION.
--- NOTE | 2022-09-11 20:47 | NUR ---
ADMISSION ASSESSMENT COMPLETE. SCHEDULED MEDS ADMIN PER EMAR. PRN FOR CHRONIC BACK/LEFT HIP PAIN ADMIN PER EMAR. PT REQUESTING HOME MEDS FOR PAIN AND SLEEP. DR. DURAND NOTIFIED AND WILL ADD NEW ORDERS. BYRD PATENT WITH YELLOW URINE. ILEOSTOMY PATENT WITH STOOL PRESENT. SANDWICH BOX PROVIDED. PT ORIENTED TO ROOM AND NURSE CALL LIGHT. PT DENIES QUESTIONS OR CONCERNS. CALL LIGHT IN REACH.
--- NOTE | 2022-09-11 23:22 | NUR ---
NOTIFIED OF MAG RESULTS. TELEPHONE ORDER RECEIVED TO STOP THIRD BAG OF MAG VERFIED WITH READBACK METHOD. IV MAG STOPPED PER ORDER.
[2022-09-12 01:32] VITALS: BP 138/54
--- NOTE | 2022-09-12 01:44 | NUR ---
VS AND I&O OBTAINED. UA COLLECTED FROM BYRD AND SENT TO LAB. PT REPOSITIONED TO LEFT SIDE WITH PILLOWS. REPORTS HE IS RESTING WELL. NO NEEDS AT THIS TIME. CALL LIGHT IN REACH.
--- NOTE | 2022-09-12 03:42 | NUR ---
PT RESTING IN BED WITH EYES CLOSED. RESPIRATIONS EVEN. CALL LIGHT IN REACH.
--- NOTE | 2022-09-12 04:05 | NUR ---
IV PUMP ALARMING. ISSUE RESOLVED. NEW BAG IVF INFUSING PER ORDER. PT REPOSITIONED SELF IN BED. LAB IN ROOM FOR MORNING DRAW. DENIES NEEDS. CALL LIGHT IN REACH.
[2022-09-12 05:23] VITALS: BP 126/51
--- NOTE | 2022-09-12 05:27 | NUR ---
VS AND I&O OBTAINED. PT REPORTS HE IS RESTING WELL. DENIES NEEDS AT THIS TIME. CALL LIGHT IN REACH.
--- NOTE | 2022-09-12 06:33 | EKG ---
[facility] [address] [place] [address] Signed Atrial-sensed ventricular-paced rhythm Abnormal ECG No previous ECGs available Confirmed by NICKI DURAND MD ([id number]) on 09/12/2022 6:33:23 AM Electronically Signed By: NICKI DURAND 09/12/22 0633 PATIENT NAME: NGOZI ESCOBEDO ANITA Electrocardiogram DATE OF : 51 PHYSICIAN: NICKI DURAND REPORT #: [id number] REPORT IS CONFIDENTIAL AND NOT TO BE RELEASED WITHOUT AUTHORIZATION
--- NOTE | 2022-09-12 07:15 | NUR ---
BEDSIDE REPORT FROM GINETTE LLAMAS. ROBER RESTING ON LEFT SIDE WITH EYES CLOSED. FULL BODY ASSESSMENT DONE. PATIENT REPORTS NO PAIN AT THIS TIME. TELE 1 HR 70S PACED. LUNG SOUNDS CLEAR. BURPED OSTOMY BAG. NO OTHER NEEDS AT THIS TIME. CALL LIGHT WITHIN REACH.
[2022-09-12 10:40] VITALS: BP 112/69
[2022-09-12] MEDS ORDERED: SODIUM CHLORI1000 M2 PO (11:28)
[2022-09-12] MEDS ORDERED: ARFORMOTER15 MCG/2 M INH (11:28)
[2022-09-12] MEDS ORDERED: NICODERM CQ1 EAC2 TD (11:56)
[2022-09-12] MEDS ORDERED: OXYCODONE HCL5 MG PO (11:57)
[2022-09-12] MEDS ORDERED: REMERON15 MG PO (11:58)
[2022-09-12] MEDS ORDERED: GAS RELIEF80 MG PO (11:59)
--- NOTE | 2022-09-12 12:00 | NUR ---
PATIENT ABLE TO SHIFT SELF BACK AND FORTH IN BED. INTO ROOM TO BURP COLOSTOMY BAG. PATIENT WORKED WELL WITH PHYSICAL THERAPY. BACK TO BED. REPORTS PAIN WELL CONTROLLED WITH PO OXYCODONE.
[2022-09-12] MEDS ORDERED: SODIUM BICARBO650 MG PO (12:02)
--- NOTE | 2022-09-12 12:04 | NUR ---
MED REC COMPLETE
[2022-09-12 13:32] VITALS: BP 105/47
--- NOTE | 2022-09-12 13:35 | NUR ---
PATIENT IN BED, SITTING UP WATCHING TELEVISION. BYRD AND OSTOMY DRAINED AND DOCUMENTED. VITALS COMPLETED. PT HAS NO FURTHER REQUESTS AT THIS TIME. CALL LIGHT WITHIN REACH.
--- NOTE | 2022-09-12 17:00 | NUR ---
INTO ROOM, PATIENT COLOSTOMY BAG NEEDING BURPED. PUTTING OUT SOFT STOOL. URINE OUTPUT ADEQUATE. VS WNL. FULL BODY ASSESSMENT DONE, WNL. PAIN MEDICATION EFFECTIVE REPORTS PAIN 2/10 ON PAIN SCALE. NO OTHER NEEDS AT THIS TIME.
[2022-09-12 18:33] VITALS: BP 106/56
--- NOTE | 2022-09-12 18:35 | NUR ---
PATIENT IN BED AFTER MEAL. VITALS AND I/O'S COMPLETED. CALL LIGHT WITHIN REACH.
--- NOTE | 2022-09-12 19:00 | NUR ---
CHANGED PATIENT OSTOMY BAG, STOMA RED. ROMINA SKIN INTACT, NO BREAKDOWN NOTED. LOOSE SOFT STOOL NOTED. SKIN TO COCKYX INTACT, SKIN BLANCHABLE. APPLIED ALLEYVYN DRESSING AND PROPPED PATIENT TO LEFT SIDE. PROVIDED EDUCATION ON PREVENTION OF PRESSURE SORES AND IMPORTANCE OF OFFLOADING WEIGHT. PATIENT VERBALIZED UNDERSTANDING. NO OTHER NEEDS AT THIS TIME.
--- NOTE | 2022-09-12 19:24 | NUR ---
REPORT RECEIVED FROM DAY SHIFT RN. PT LYING IN BED ALERT AND ORIENTED. JELLO PROVIDED PER REQUEST. RT IN FOR BREATHING TX. NO FURTHER NEEDS. WHITE BOARD UPDATED. CALL LIGHT IN REACH.
[2022-09-12 21:32] VITALS: BP 130/53
--- NOTE | 2022-09-12 21:43 | NUR ---
EVENING ASSESSMENT COMPLETE. SCHEDULED MEDS ADMIN PER EMAR. PT DENIES PAIN OR NAUSEA. BYRD PATENT WITH YELLOW CLOUDY URINE. SEDIMENT NOTED. OSTOMY PATENT WITH BROWN STOOL. ALLEVYN IN PLACE ON COCCYX. PT REPOSITIONED SELF TO LEFT SIDE. PT DENIES QUESTIONS OR CONCERNS. CALL LIGHT IN REACH.
--- NOTE | 2022-09-12 23:26 | NUR ---
PT RESTING IN BED WITH EYES CLOSED. RESPIRATIONS EVEN. CALL LIGHT IN REACH.
[2022-09-13 01:22] VITALS: BP 105/48
--- NOTE | 2022-09-13 01:35 | NUR ---
PT AWAKENED FOR VS. PT LYING ON LEFT SIDE WITH PILLOW BEHIND HIS BACK. REPORTS HE IS RESTING WELL. ASSESSMENT UNCHANGED. PT DENIES NEEDS. CALL LIGHT IN REACH.
--- NOTE | 2022-09-13 04:42 | NUR ---
PT RESTING IN BED WITH EYES CLOSED. RESPIRATIONS EVEN. CALL LIGHT IN REACH.
[2022-09-13 05:31] VITALS: BP 126/60
--- NOTE | 2022-09-13 06:06 | NUR ---
PT UTILIZES CALL LIGHT, REPORTS NOSE STARTED BLEEDING AFTER LAB ANGIE BLOOD. PT PROVIDED WITH TISSUES, INSTRUCTED PT TO SQUEEZE NOSE AND APPLY PRESSURE. PT ATTEMPTS TO BLOW HIS NOSE. EDUCATION PROVIDED REGARDING KEEPING PRESSURE APPLIED. PT STATES UNDERSTANDING. BLEEDING STOPPED WHILE ARMED SECURITY GUARD AT BEDSIDE. PT ATTEMPTS TO LAY HEAD BACK DOWN AND BLEEDING RESUMES. PT INSTRUCTED TO KEEP HOB ELEVATED FOR A WHILE AND CONITNUE TO APPLY PRESSURE TO HIS NOSE. UNDERSTANDING STATES. VS OBTAINED. WNL. OSTOMY AND BYRD EMPTIED. ICE WATER PROVIDED. PT DENIES FURTHER NEEDS AT THIS TIME. CALL LIGHT IN REACH.
--- NOTE | 2022-09-13 07:46 | NUR ---
PT RESTING IN BED WATCHING TV AT TIME OF SHIFT REPORT. FRESH H20 TO BEDSIDE CALL LIGHT IN REACH. PT DENIES NEEDS OR DISCOMFORTS
--- NOTE | 2022-09-13 09:31 | NUR ---
PER AM MEETING PATIENT TO DISCHARGE TODAY. CHART NOTES FAXED TO KAMINI AT [facility] FOR AUTH FROM [employer].
[2022-09-13 09:45] VITALS: BP 125/49
--- NOTE | 2022-09-13 10:51 | NUR ---
PT TOLERATES ENTIRE MORNING MEAL DENIES NEED OF ADDITIONAL ITEMS. RESTING IN BED AGREES HE IS COMFORTABLE. PT REPOSITIONS SELF FREQUENTLY STATES HE WILL NAP ON HIS LEFT SIDE TO RELIEVE PRESSURE TO HIS BOTTOM. FRESH H20 PROVIDED DENIES FURTHER NEED
--- NOTE | 2022-09-13 11:47 | NUR ---
Assisted Pt SBA with using the bathroom. Ambulated from chair to bathroom and back. Repositioned Pt as needed. Gave Pt new ice pack. Call light left in reach. No other needs expressed by Pt.
--- NOTE | 2022-09-13 12:21 | NUR ---
DR CALLE IN TO SEE PT DC INSTRUCTIONS DISCUSSED. PT AGREES HE IS READY TO DC DENIES QUESTIONS OR CONCERNS
[2022-09-13 13:50] VITALS: BP 111/57
--- NOTE | 2022-09-13 14:27 | NUR ---
PT REPORTS DR CALLE WAS IN AND HE IS TO DC TODAY. DENIES QUESTIONS OR CONCERNS
[2022-09-13] MEDS ORDERED: KLOR-CON 1010 MEQ PO (15:03)
[2022-09-13] MEDS ORDERED: MAG-OXIDE400 MG PO (15:03)
--- NOTE | 2022-09-13 15:56 | NUR ---
REPORT CALLED TO SNF. PT PREPPED FOR TRANSPORT.
[2022-09-17] MEDS ORDERED: LEVOFLOXACIN750 MG PO (15:36)
--- NOTE | 2022-09-17 16:16 | NUR ---
Notified by Dr. Pelaez, pt has a + culture of urine for psuedamonis. He has been attempting to call the pt and is unable to contact. Pt is now resideing [facility]. [facility] and he completed an rx for levaquin and addendend the note. I will fax rx, culture, and note to KAMINI at [facility] [place]. Called KAMINI at [facility] and updated.
== END 2022-09-13 16:10 | DRG 641 ==
LOC: ED 17:12 → MS 18:55
PROVIDERS: ADMIT Family Medicine; ATTEND Family Medicine
PROC: 0T9B70Z Drainage of Bladder with Drainage Device, Via Natural or Artificial Opening (ICD-10-PCS; principal; 2022-09-11)
DX: E83.42 Hypomagnesemia (principal); E87.1 Hypo-osmolality and hyponatremia; E46 Unspecified protein-calorie malnutrition; N17.9 Acute kidney failure, unspecified; I43 Cardiomyopathy in diseases classified elsewhere; I11.9 Hypertensive heart disease without heart failure; Z68.1 Body mass index [BMI] 19.9 or less, adult; J44.9 Chronic obstructive pulmonary disease, unspecified; G47.30 Sleep apnea, unspecified; K21.9 Gastro-esophageal reflux disease without esophagitis; F32.A Depression, unspecified; E86.0 Dehydration; F41.9 Anxiety disorder, unspecified; R00.1 Bradycardia, unspecified; Z85.038 Personal history of other malignant neoplasm of large intestine; Z79.891 Long term (current) use of opiate analgesic; Z87.891 Personal history of nicotine dependence; Z85.028 Personal history of other malignant neoplasm of stomach; Z86.59 Personal history of other mental and behavioral disorders; Z95.0 Presence of cardiac pacemaker; Z86.11 Personal history of tuberculosis; Z93.2 Ileostomy status; Z90.49 Acquired absence of other specified parts of digestive tract; Z88.8 Allergy status to other drugs, medicaments and biological substances; Z91.041 Radiographic dye allergy status; Z79.899 Other long term (current) drug therapy
CPT/HCPCS: 36415; 71045; 80053; 81001; 82607; 82746; 83735; 84100; 84484; 85025; 87088; 93005; 93010; 94640; 96374; 97161; 99285 25; A9270; C9113; J1650; J3475; J7030; J7121